=== PATIENT | female | born 1980 | race Caucasian/White ===

== ENCOUNTER 2024-05-28 22:23 | Inpatient (IN) | payer MEDICAID, OTHER ==
[~2024-05-28] VITALS: Ht 165.1 cm; Wt 115.7 kg
[~2024-05-28 22:23] MED LIST: FLUO40CA8 PO; PROT40 PO
[2024-05-28 22:41] VITALS: O2SAT 96
[2024-05-28 23:37] LABS: BASOPHILS % 0.4 % (0.0-2.0); DIFFERENTIAL COMMENT 0; EOSINOPHILS % 1.1 % (0.0-5.0); HEMATOCRIT. 33.4 % (36.0-48.0); HEMOGLOBIN. 10.1 g/dL (12.0-16.0); LYMPHOCYTES % 35.1 % (20.0-50.0); MEAN CORPUSCULAR HEMOGLOBIN 21.6 pg (28.0-32.0); MEAN CORPUSCULAR HGB CONC 30.3 g/dL (31.0-37.0); MEAN CORPUSCULAR VOLUME 71.1 fL (81.0-99.0); MEAN PLATELET VOLUME 6.8 fl (7.4-10.4); MONOCYTES % 4.3 % (2.0-8.0); NEUTROPHILS % 59.1 % (40.0-76.0); PLATELET 341 x1000/uL (130-400); RED BLOOD CELL COUNT 4.69 mill/uL (4.2-5.4); RED CELL DISTRIBUTION WIDTH 19.4 % (11.6-14.6); WHITE BLOOD COUNT 6.4 x1000/uL (4.5-11.0)
[2024-05-28 23:46] LABS: CHLORIDE 109 mEq/L (98-107); POTASSIUM 4.1 mEq/L (3.5-5.1); SODIUM 147 mEq/L (136-145)
[2024-05-28 23:47] LABS: CARBON DIOXIDE 29 mEq/L (21-32)
[2024-05-28 23:52] LABS: CREATININE 0.7 mg/dL (0.6-1.0); ETHANOL BLOOD 246 mg/dL (<10); GLUCOSE 93 mg/dL (70-105); UREA NITROGEN BLOOD 11 mg/dL (9-23)
[2024-05-28 23:53] LABS: ALANINE AMINOTRANSFERASE 16 IU/L (10-49); AMMONIA < 17 uMol/L (<32)
[2024-05-28 23:54] LABS: ACETAMINOPHEN < 2 ug/mL (10-30); ALBUMIN 4.2 g/dL (3.2-4.8); ASPARTATE AMINOTRANSFERASE 18 IU/L (<34); BILIRUBIN TOTAL 0.2 mg/dL (0.1-1.0); CREATINE KINASE 101 IU/L (34-145); PROTEIN TOTAL 7.1 g/dL (6.0-8.3)
[2024-05-29] MEDS: BACITRACIN 14GM TUBE TOP NR
[2024-05-29 00:01] LABS: HCG SCREEN NEGATIVE
[2024-05-29 00:06] LABS: BILIRUBIN DIRECT < 0.1 mg/dL (<=3.0)
[2024-05-29 04:53] LABS: CLARITY URINE CLEAR (CLEAR); COLOR URINE YELLOW (YELLOW); GLUCOSE URINE NEGATIVE (NEGATIVE); KETONES URINE NEGATIVE (NEGATIVE); LEUKOCYTE ESTERASE URINE NEGATIVE (NEGATIVE); NITRITE URINE NEGATIVE (NEGATIVE); OCCULT BLOOD URINE NEGATIVE (NEGATIVE); PROTEIN URINE TRACE (NEGATIVE); SPECIFIC GRAVITY URINE 1.023 (1.005-1.030); UROBILINOGEN URINE 0.2 E.U./dL (0.2-1.0)
[2024-05-29 05:23] LABS: *AMPHETAMINES SCREEN URINE NEGATIVE (NEGATIVE); *BARBITURATES SCREEN URINE NEGATIVE (NEGATIVE); *BENZODIAZEPINES SCREEN URINE PRESUMPTIVE POSITIVE (NEGATIVE); *COCAINE SCREEN URINE NEGATIVE (NEGATIVE); BACTERIA URINE TRACE; CANNABINOID URINE SCREEN PRESUMPTIVE POSITIVE (NEGATIVE); ECSTASY MDMA SCREEN URINE NEGATIVE (NEGATIVE); METHADONE URINE SCREEN NEGATIVE (NEGATIVE); OPIATES URINE SCREEN NEGATIVE (NEGATIVE); PHENCYCLIDINE URINE SCREEN NEGATIVE (NEGATIVE); RBC URINE NONE SEEN /hpf (0-2); SQUAMOUS EPITHELIAL CELL URINE 1+ /lpf (RARE/1+); WBC URINE 0-2 /hpf (0-2)
[2024-05-29 05:24] LABS: MUCUS URINE 1+ /lpf (< = 2+)
[2024-05-29] MEDS: CHLORDIAZEPOXIDE 25MG CAPSULE PO ONE (06:57)
[2024-05-29] MEDS ORDERED: LORAZEPAM 2MG/ML INJ IV ONE (10:15)
[2024-05-29] MEDS: LORAZEPAM 2MG/ML INJ IV NR (12:55)
[2024-05-29] MEDS ORDERED: IPRATROPIUM/ALBUTEROL 0.5-3(2.5)MG/3ML NEB HHN PRN (13:45)
[2024-05-29] MEDS ORDERED: DOCUSATE SODIUM 100MG CAPSULE PO PRN (13:45)
[2024-05-29] MEDS ORDERED: ONDANSETRON HCL 4MG/2ML INJ IV PRN (13:45)
[2024-05-29] MEDS ORDERED: ACETAMINOPHEN 325MG TABLET PO PRN (13:45)
[2024-05-29] MEDS ORDERED: CLONIDINE 0.1MG TABLET PO PRN (13:45)
[2024-05-29] MEDS: LORAZEPAM 2MG/ML INJ IV PRN (17:40)
[2024-05-29] MEDS: MVI, ADULT NO.1 10 ML, FOLIC ACID 1 MG, THIAMINE HCL 100 MG in SODIUM CHLORIDE 0.9% 1,0... IV SCH (17:46)
[2024-05-29] MEDS: ENOXAPARIN 30MG/0.3ML SYR SUBCUT SCH (21:00)
[2024-05-29 22:30] VITALS: BP 134/51; PULSE 81; RESP 20; TEMP 36.8; O2SAT 98
[2024-05-29 22:42] VITALS: BP 134/51; PULSE 81; RESP 20; TEMP 36.8; O2SAT 98
[2024-05-29] MEDS: LORAZEPAM 0.5MG TABLET PO PRN (23:10)
[2024-05-29] MEDS: TRAZODONE HCL 50MG TABLET PO SCH (23:52)
[2024-05-29] MEDS: DIPHENHYDRAMINE 50MG/ML VIAL IV PRN (23:52)
[2024-05-30] VITALS: BP 126/88; PULSE 80; RESP 20; TEMP 36.9
[2024-05-30] MEDS ORDERED: CHLORDIAZEPOXIDE 5 MG CAPSULE PO SCH
[2024-05-30] MEDS: CHLORDIAZEPOXIDE 25MG CAPSULE PO SCH ×2 (00:21→13:52)
[2024-05-30] MEDS ORDERED: ATEN50TA MT (01:51)
[2024-05-30] MEDS ORDERED: TRAZ300T11 MT (01:51)
[2024-05-30] MEDS ORDERED: ALBU05 NEB (01:51)
[2024-05-30] MEDS ORDERED: FLUO40CA8 MT (01:51)
[2024-05-30] MEDS ORDERED: GABA-290 MT (01:51)
[2024-05-30] MEDS ORDERED: PANT40SU PO (01:51)
[2024-05-30 04:15] VITALS: BP 129/60; PULSE 80; RESP 20; TEMP 36.7; O2SAT 98
[2024-05-30 07:41] LABS: BASOPHILS % 0.5 % (0.0-2.0); DIFFERENTIAL COMMENT 0; EOSINOPHILS % 0.8 % (0.0-5.0); HEMATOCRIT. 32.1 % (36.0-48.0); HEMOGLOBIN. 9.8 g/dL (12.0-16.0); LYMPHOCYTES % 33.7 % (20.0-50.0); MEAN CORPUSCULAR HEMOGLOBIN 21.9 pg (28.0-32.0); MEAN CORPUSCULAR HGB CONC 30.6 g/dL (31.0-37.0); MEAN CORPUSCULAR VOLUME 71.6 fL (81.0-99.0); MEAN PLATELET VOLUME 8.1 fl (7.4-10.4); MONOCYTES % 3.7 % (2.0-8.0); NEUTROPHILS % 61.3 % (40.0-76.0); PLATELET 138 x1000/uL (130-400); RED BLOOD CELL COUNT 4.48 mill/uL (4.2-5.4); RED CELL DISTRIBUTION WIDTH 19.6 % (11.6-14.6); WHITE BLOOD COUNT 5.2 x1000/uL (4.5-11.0)
[2024-05-30 07:59] LABS: CALCIUM 9.2 mg/dL (8.7-10.4); CARBON DIOXIDE 25 mEq/L (21-32); CHLORIDE 106 mEq/L (98-107); POTASSIUM 4.5 mEq/L (3.5-5.1); SODIUM 143 mEq/L (136-145)
[2024-05-30 08:00] VITALS: BP 103/52; PULSE 75; RESP 18; TEMP 36.4; O2SAT 96
[2024-05-30 08:02] LABS: CREATININE 0.8 mg/dL (0.6-1.0); GLUCOSE 80 mg/dL (70-105); UREA NITROGEN BLOOD 14 mg/dL (9-23)
[2024-05-30 08:03] LABS: ALANINE AMINOTRANSFERASE 14 IU/L (10-49)
[2024-05-30 08:04] LABS: ASPARTATE AMINOTRANSFERASE 24 IU/L (<34); BILIRUBIN DIRECT 0.2 mg/dL (<=3.0); BILIRUBIN TOTAL 0.6 mg/dL (0.1-1.0)
[2024-05-30 12:00] VITALS: BP 118/56; PULSE 85; RESP 19; TEMP 36.6; O2SAT 96
[2024-05-30 16:00] VITALS: BP 123/51; PULSE 68; RESP 18; TEMP 36.4; O2SAT 97
[2024-05-30] MEDS: ACETAMINOPHEN 325MG TABLET PO PRN (19:40)
[2024-05-30 20:00] VITALS: BP 134/60; PULSE 83; RESP 19; TEMP 36.4; O2SAT 97
[2024-05-30] MEDS ORDERED: TRAMADOL 50MG TABLET PO PRN (21:00)
[2024-05-30] MEDS ORDERED: NALOXONE HCL 0.4MG/ML VIAL IV PRN (21:30)
[2024-05-30] MEDS: HYDROCODONE/ACETAMINOPHEN 5/325MG TABLET PO PRN (21:51)
[2024-05-30] MEDS: FLUOXETINE HCL 20MG CAPSULE PO SCH (21:53)
[2024-05-31] VITALS: BP 124/56; PULSE 76; RESP 19; TEMP 36.4; O2SAT 100
[2024-05-31 04:00] VITALS: BP 131/62; PULSE 79; RESP 19; TEMP 36.4; O2SAT 100
[2024-05-31 08:00] VITALS: BP 146/69; PULSE 72; RESP 18; TEMP 36.3; O2SAT 98
[2024-05-31 12:00] VITALS: BP 127/57; PULSE 59; RESP 18; TEMP 36.5; O2SAT 98
[2024-05-31] MEDS ORDERED: CHLO25CA10 PO (13:22)
[2024-05-31 16:00] VITALS: BP 132/58; PULSE 70; RESP 15; TEMP 37.2
[2024-05-31 20:00] VITALS: BP 123/76; PULSE 97; RESP 18; TEMP 36.3; O2SAT 100
== END 2024-05-31 22:50 | disposition left against medical advice (07) | DRG 770 ==
LOC: ER 22:23 → 8WST 05-29 12:13 → EDBEDREQTM 05-29 12:22 → EDBEDREQ 05-29 12:22
PROVIDERS: ADMIT Internal Medicine; ATTEND Internal Medicine
PROC: GZ56ZZZ Individual Psychotherapy, Supportive (ICD-10-PCS; principal; 2024-05-29)
DX: F10.129 Alcohol abuse with intoxication, unspecified (principal); R45.851 Suicidal ideations; E87.1 Hypo-osmolality and hyponatremia; E66.01 Morbid (severe) obesity due to excess calories; F10.139 Alcohol abuse with withdrawal, unspecified; F32.9 Major depressive disorder, single episode, unspecified; F41.9 Anxiety disorder, unspecified; Y90.8 Blood alcohol level of 240 mg/100 ml or more; Z53.29 Procedure and treatment not carried out because of patient's decision for other reasons; F43.10 Post-traumatic stress disorder, unspecified; G89.29 Other chronic pain; Z86.73 Personal history of transient ischemic attack (TIA), and cerebral infarction without residual deficits; Z79.891 Long term (current) use of opiate analgesic; Z88.8 Allergy status to other drugs, medicaments and biological substances; Z68.41 Body mass index [BMI] 40.0-44.9, adult
CPT/HCPCS: 36415; 71045; 80048; 80076; 80305; 80307; 80320; 80329; 81003; 82140; 82550; 84703; 85025; 87426; 96365; 96375; 99285; A4606; J1200; J1650; J2060; J3411; J3490; J7030; G0480